=== PATIENT | female | born 1990 | race Caucasian/White ===

== ENCOUNTER 2017-08-25 14:03 | Inpatient (IN) | payer OTHER ==
[2017-08-25 14:42] LABS: Urine Bilirubin Negative (Negative); Urine Glucose Negative (Negative); Urine Nitrite Negative (Negative)
[2017-08-25 15:07] LABS: Hematocrit 38 % (35-47); Hemoglobin 12.9 g/dl (12.0-16.0); Mean Corpuscular HGB Conc 34 g/dl (31-36); Mean Corpuscular Hemoglobin 30 pg (27-31); Mean Corpuscular Volume 89 fL (80-97); Mean Platelet Volume 7 um3 (7.4-10.4); Red Blood Count 4.33 10^6/ul (4.0-5.4); Red Cell Distribution Width 13 % (10.5-15); White Blood Count 8.4 10^3/ul (3.5-10.8)
[2017-08-25 15:13] LABS: Benzodiazepine Urine Screen Presumptive Positive (None Detect)
[2017-08-25 15:24] LABS: ALT 7 U/L (7-52); AST 12 U/L (13-39); Albumin 4.2 g/dL (3.2-5.2); Alkaline Phosphatase 60 U/L (34-104); Anion Gap 5 mmol/L (2-11); BUN/Creatinine Ratio 13.3 (8-20); Blood Urea Nitrogen 11 mg/dL (6-24); CO2 Carbon Dioxide 27 mmol/L (22-32); Calcium 9.6 mg/dL (8.6-10.3); Chloride 106 mmol/L (101-111); EGFR African American 108.6 (>60); EGFR Non-African American 84.5 (>60); Globulin 2.8 g/dL (2-4); Glucose 89 mg/dL (70-100); Potassium 3.9 mmol/L (3.5-5.0); Sodium 138 mmol/L (133-145)
[2017-08-25 15:52] LABS: Acetaminophen < 15 mcg/mL; Alcohol < 10 mg/dL (<10)
[2017-08-25 16:12] LABS: TSH (Thyroid Stimulating Horm) 1.15 mcIU/mL (0.34-5.60)
[2017-08-25] MEDS ORDERED: Acetaminophen TAB* 325 MG PO PRN (23:33)
[2017-08-25] MEDS ORDERED: Al Hydrox/Mg Hydrox/Simet LIQ* 30 ML UDC PO PRN (23:33)
[2017-08-25] MEDS ORDERED: hydrOXYzine HCL TAB* 50 MG PO PRN (23:34)
[2017-08-26 07:44] VITALS: BP 97/66
[2017-08-26] MEDS ORDERED: Vitamin THERAPEUTIC TAB PO SCH (09:00)
[2017-08-26] MEDS ORDERED: Gabapentin CAP(*) 100 MG PO PRN (13:03)
[2017-08-26] MEDS ORDERED: Venlafaxine EXT RELEASE CAP* 37.5 MG PO SCH (14:00)
--- NOTE | 2017-08-26 18:32 | HP ---
HISTORY AND PHYSICAL: DATE OF ADMISSION: 08/25/17 SUPERVISING PSYCHIATRIST: Suraj Guillen MD* (dictated by VINEET Brown) . JUSTIFICATION FOR ADMISSION: The patient reports an increase in depression and anxiety. She has not had her antidepressive medications for 2 to 3 weeks due to kidney complications. She reports severe depressive symptoms along with thoughts of . She merits hospitalization for immediate safety and stabilization. CHIEF COMPLAINT: "I had to stop my medications 2 to 3 weeks ago." HISTORY OF PRESENT ILLNESS: The patient is a 26-year-old female who has been visiting family in the area. 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 She reports renal acidosis 2 to 3 weeks ago and therefore, stopped all medications until having further clarification, since then she has had significantly severe depressed mood, decrease in appetite and hypersomnia. She reports increase in anxiety and was given a prescription of alprazolam. She admits she has been over using this and does not wish to continue taking it. She endorses decreased concentration and focus. She states that she has difficulty sleeping and attributes this to working various shift work, 12-hour shifts. The patient reports a history of anorexia and disordered eating. She states that she has a sense of comfort when restricting her diet and has been eating approximately 500 to 800 calories recently. She states she tends to fixate on one food at a time and only eats that particular food. The patient states that she has a history of self-harm, specifically cutting onset in high school. Her last episode of self-harm was last year in which she needed sutures. She denies recent SIB. Sol states that she had many stressors in the past 4 to 5 months. Her mother was diagnosed with lung cancer in January of this year. Sol expected to care for her mother for extended period of time, so she quit her job as a nurse and moved home to the [facility]. Her mother suddenly on 04/09/17 and the patient moved back to [place] towards the end of March. She, her sister and her father went on a road trip in honor of her mother, then she returned back to [place] and to work in April. Her was deployed to [facility] in May. The patient denies periods of caren or psychosis. She denies other obsessions, compulsions , or rituals. She denies history of delusion or decreased motivation. She denies HI or . PAST PSYCHIATRIC HISTORY: The patient participated in therapy with local psychiatric nurse practitioner, Angelina Cruz when the patient was in high school. She attended therapy while living in [place], [place] last June after a self-harm episode. She reports she utilizes [employer] in regards to her career as ICU trauma nurse. She has recently been trying to pursue outpatient treatment and been frustrated by the length of time that it takes to get an appointment. Past psychiatric meds include sertraline and bupropion XL. She states that sertraline at higher doses appear to cause tremors. She reports efficacy from bupropion. History of using trazodone as needed for sleep , but did not like the hangover effect. She has recently been using alprazolam several times a day and wishes to discontinue this. She reports efficacy in the past with hydroxyzine as needed for anxiety. TRAUMA/ABUSE HISTORY: Her mother, Tasha, suddenly passed from lung cancer, 11/14. PAST MEDICAL HISTORY: Connective tissue disorder. She reports that she has had 2 shoulder repairs and hip repair including muscle grafting. She has had a stent placed in her subclavian vein due to scar tissue from the shoulder surgery that will be her right shoulder. Height 5 feet 8 inches, weight 133 pounds, she reports this is up somewhat, but has lost 10 pounds in the recent 2 months. Last menstrual period 4 years ago, Implanon was placed in 2012, removed and replaced April 2016. PRIMARY CARE PROVIDER: She has an upcoming new patient appointment in [place] on 09/03/17. CURRENT MEDICATIONS: None. ALLERGIES: AZITHROMYCIN. FAMILY PSYCHIATRIC HISTORY: Depression and marijuana use. SOCIAL HISTORY: The patient is the eldest of 2 daughters by her parents. Her sister is 15 months younger and is a residential finish carpenter at a college. The patient's father works for [employer]. Her mother as stated above is . The patient was raised in [place] and graduated from high school. As stated above, she is RN at [employer]. She on 11/28/15. Her was stationed in [place] last year and he has been deployed since May. REVIEW OF SYSTEMS: Constitutional: Negative. Negative for neurological symptoms, visual changes, headaches, respiratory difficulties, chest pain, syncope, gastrointestinal distress, musculoskeletal problems or skin problems. PHYSICAL EXAMINATION GENERAL: The patient is a well-developed thin framed female, sitting comfortably on her bed. She denies pain or distress. Head and face; no signs of trauma. Normal head and face inspection. VITAL SIGNS: Most recent vital signs; temp 98.9, pulse 80, respiration rate 16 , O2 saturation 98%, BP 97/66. HEENT: Eyes: PERRL. EOMI. Conjunctivae clear. No nystagmus. Ears: Hearing grossly intact. Ear canals, tympanic membranes within normal limits. Mouth: Mucous membranes are moist. Tongue midline. NECK: Supple. Trachea midline. Full ROM. LUNGS: Clear to auscultation. Breath sounds present. CARDIOVASCULAR: Heart regular rate and rhythm. Pulses symmetrical, present bilaterally in upper and lower extremities. ABDOMEN: Soft and nontender. Bowel sounds x4. NEURO: Alert and oriented x3. Gait is normal. MENTAL STATUS EXAM: The patient is a healthy-appearing white female dressed in her own clothing. She is well groomed, thin framed, long dark brown hair. She appears stated age. She sits comfortably on her bed and is cooperative with interview. She answers questions fully. She is alert and oriented x3. Her concentration is fair. Her memory is 3/3. Her mood is "okay." Affect is full range. Speech is regular rate and rhythm, soft and articulate. Thought process circumstantial in regards to current stressors. She is forward thinking and wants outpatient referrals. Content of thought is negative for SI , HI, . Her insight is good. Her judgement is good. Her fund of knowledge is excellent. LABORATORY DATA: CBC grossly unremarkable. Platelet count is 456,000, MPV is 7 , monocyte percentage 9.4. Chemistry is within normal limits. TSH 1.15. HCG is negative. Kidney functions are within normal limits. Urinalysis negative. Toxicology; benzodiazepines positive as expected. Salicylates, acetaminophen, and alcohol are negative. DIAGNOSES: [place] I: Major depressive disorder, moderate, recurrent; bereavement ; anorexia by history. [place] II: Deferred. [place] III: Connective tissue disorder. [place] IV: Stressors related to recent of mother, marital strain and emotional strain from career. [place] V: 60. ASSESSMENT: The patient is a 26-year-old white female originally from the [facility]. 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 She returned back home to help care for her mother this year when diagnosed with lung cancer. Her mother suddenly within 10 weeks of diagnosis. The patient is to a serviceman who was deployed to [facility] in May. She recently had episode of renal metabolic acidosis and therefore, stopped taking antidepressants. Since then, she has attempted to resume outpatient mental health services and been frustrated with access to care. She has also had fatigue, anhedonia, and has not returned phone calls to people that she has reached out to. She has strong support with her father who she is staying with for the weekend who agrees that a week's supply of medications until she is able to get an appointment in [facility] is a sufficient plan. Both Sol and her father appreciate admission and assistance with referrals. They prefer that she be discharged today to the care of her father to pursue further outpatient services. PLAN: Admit to adult behavioral services unit on voluntary status. Code status is full. She is currently on q.15-minute safety checks and encouraged to participate in intensive milieu and psychoeducational groups. Medication options discussed. The patient is agreeable to a trial of venlafaxine XR 37. 5 mg daily. Due to recent renal complications, we will avoid hydroxyzine because of the anticholinergic effects. We will try a low dose gabapentin 100 mg t.i.d. p.r.n. and discontinue alprazolam. The patient and father agree to pursue discharge the same day as stated above. The patient will be seen with her father until she returns to [place] this weekend at which time he will be staying with her until next Wednesday. Discharge planning including outpatient referrals in the [facility]. VINEET BROWN [id number]/[facility] #: [id number] SOHAIL
--- NOTE | 2017-08-27 13:05 | ED ---
Phani Velasco Benjamin, scribed for Ari Canales MD on 08/25/17 at 1440 . Psychiatric Complaint - HPI Summary HPI Summary: 26yo female c/o increasing depression. Pt has been treated for anxiety and depression for 8 years, but her depression has been worsening with increasing stress in her life lately. Pts mother recently , has been [place], and pt is also dealing with an unknown kidney issue that altogether is stressing her out. She reports recent social withdrawal and decreased activities. Pt states that she has has been taking zolaf for her kidney issues but is now completely off zolaf. Pt only takes Xanax as needed. Pt denies SI. - History Of Current Complaint Chief Complaint: EDMentalHealth Time Seen by Provider: 08/25/17 14:21 Hx Obtained From: Patient Onset/Duration: Gradual Onset, Lasting Weeks - "weeks", Still Present Timing: Constant Severity Initially: Mild Severity Currently: Moderate Character: Depressed Aggravating Factor(s): Recent Stress Alleviating Factor(s): Nothing Associated Signs And Symptoms: Positive: Social Withdrawal Related History: Positive For: Prior Psychiatric Issues - hx of depression and anxiety - Allergies/Home Medications Allergies/Adverse Reactions: Allergies Allergy/AdvReac Type Severity Reaction Status Date / Time Azithromycin Allergy Mild Hives Verified 08/26/17 11:49 PMH/Surg Hx/FS Hx/Imm Hx Infectious Disease History: No Infectious Disease History: Denies: Traveled Outside the [place] in Last 30 Days - Family History Known Family History: Negative: Cardiac Disease - Social History Occupation: Employed Full-time Lives: With Family Review of Systems Constitutional: Negative Eyes: Negative ENT: Negative Cardiovascular: Negative Respiratory: Negative Gastrointestinal: Negative Genitourinary: Negative Musculoskeletal: Negative Skin: Negative Neurological: Negative Positive: Depressed, Other - denies SI All Other Systems Reviewed And Are Negative: Yes Physical Exam Triage Information Reviewed: Yes Vital Signs On Initial Exam: Initial Vitals Temp Pulse Resp BP Pulse Ox 98.2 F 74 16 128/81 99 08/25/17 14:06 08/25/17 14:06 08/25/17 14:06 08/25/17 14:06 08/25/17 14:06 Vital Signs Reviewed: Yes Appearance: Positive: Well-Appearing, No Pain Distress, Well-Nourished Skin: Positive: Warm, Skin Color Reflects Adequate Perfusion, Dry Head/Face: Positive: Normal Head/Face Inspection Eyes: Positive: EOMI, [place] ENT: Positive: Normal ENT inspection, Hearing grossly normal Neck: Positive: Supple, Nontender Respiratory/Lung Sounds: Positive: Clear to Auscultation, Breath Sounds Present Cardiovascular: Positive: RRR, Pulses are Symmetrical in both Upper and Lower Extremities Abdomen Description: Positive: Nontender, Soft Bowel Sounds: Positive: Present Musculoskeletal: Positive: Strength/ROM Intact Neurological: Positive: Sensory/Motor Intact, Alert, Oriented to Person Place, Time Psychiatric: Positive: Affect/Mood Appropriate Diagnostics - Vital Signs Vital Signs Temp Pulse Resp BP Pulse Ox 08/25/17 14:06 98.2 F 74 16 128/81 99 - Laboratory Lab Results: Lab Results 08/25/17 08/25/17 08/25/17 Range/Units 14:25 14:25 14:53 WBC (3.5-10.8) 10^3/ul RBC (4.0-5.4) 10^6/ul Hgb (12.0-16.0) g/dl Hct (35-47) % MCV (80-97) fL MCH (27-31) pg MCHC (31-36) g/dl RDW (10.5-15) % Plt Count (150-450) 10^3/ul MPV (7.4-10.4) um3 Neut % (Auto) (38-83) % Lymph % (Auto) (25-47) % [place] % (Auto) (1-9) % Eos % (Auto) (0-6) % Baso % (Auto) (0-2) % Absolute Neuts (auto) (1.5-7.7) 10^3/ul Absolute Lymphs (auto) (1.0-4.8) 10^3/ul Absolute Monos (auto) (0-0.8) 10^3/ul Absolute Eos (auto) (0-0.6) 10^3/ul Absolute Basos (auto) (0-0.2) 10^3/ul Absolute Nucleated RBC 10^3/ul Nucleated RBC % Sodium 138 (133-145) mmol/L Potassium 3.9 (3.5-5.0) mmol/L Chloride 106 (101-111) mmol/L Carbon Dioxide 27 (22-32) mmol/L Anion Gap 5 (2-11) mmol/L BUN 11 (6-24) mg/dL Creatinine 0.83 (0.51-0.95) mg/dL Est GFR ( Amer) 108.6 (>60) Est GFR (Non-Af Amer) 84.5 (>60) BUN/Creatinine Ratio 13.3 (8-20) Glucose 89 (70-100) mg/dL Calcium 9.6 (8.6-10.3) mg/dL Total Bilirubin 0.30 (0.2-1.0) mg/dL AST 12 L (13-39) U/L ALT 7 (7-52) U/L Alkaline Phosphatase 60 (34-104) U/L Total Protein 7.0 (6.4-8.9) g/dL Albumin 4.2 (3.2-5.2) g/dL Globulin 2.8 (2-4) g/dL Albumin/Globulin Ratio 1.5 (1-3) TSH 1.15 (0.34-5.60) mcIU/mL Beta HCG, Quant < 0.60 mIU/mL Urine Color Yellow Urine Appearance Cloudy Urine pH 6.0 (5-9) Ur Specific [place] 1.011 (1.010-1.030) Urine Protein Negative (Negative) Urine Ketones Negative (Negative) Urine Blood Negative (Negative) Urine Nitrate Negative (Negative) Urine Bilirubin Negative (Negative) Urine Urobilinogen Negative (Negative) Ur Leukocyte Esterase Negative (Negative) Urine Glucose Negative (Negative) Urine Ascorbic Acid * H (Negative) Salicylates 4.60 (<30) mg/dL Urine Opiates Screen None detected (None Detect) Acetaminophen < 15 mcg/mL Ur Barbiturates Screen None detected (None Detect) Ur Phencyclidine Scrn None detected (None Detect) Ur Amphetamines Screen None detected (None Detect) U Benzodiazepines Scrn Presumptive positive H (None Detect) Urine Cocaine Screen None detected (None Detect) U Cannabinoids Screen None detected (None Detect) Serum Alcohol < 10 (<10) mg/dL 08/25/17 Range/Units 14:53 WBC 8.4 (3.5-10.8) 10^3/ul RBC 4.33 (4.0-5.4) 10^6/ul Hgb 12.9 (12.0-16.0) g/dl Hct 38 (35-47) % MCV 89 (80-97) fL MCH 30 (27-31) pg MCHC 34 (31-36) g/dl RDW 13 (10.5-15) % Plt Count 456 H (150-450) 10^3/ul MPV 7 L (7.4-10.4) um3 Neut % (Auto) 53.6 (38-83) % Lymph % (Auto) 34.7 (25-47) % [place] % (Auto) 9.4 H (1-9) % Eos % (Auto) 1.9 (0-6) % Baso % (Auto) 0.4 (0-2) % Absolute Neuts (auto) 4.5 (1.5-7.7) 10^3/ul Absolute Lymphs (auto) 2.9 (1.0-4.8) 10^3/ul Absolute Monos (auto) 0.8 (0-0.8) 10^3/ul Absolute Eos (auto) 0.2 (0-0.6) 10^3/ul Absolute Basos (auto) 0 (0-0.2) 10^3/ul Absolute Nucleated RBC 0.01 10^3/ul Nucleated RBC % 0.1 Sodium (133-145) mmol/L Potassium (3.5-5.0) mmol/L Chloride (101-111) mmol/L Carbon Dioxide (22-32) mmol/L Anion Gap (2-11) mmol/L BUN (6-24) mg/dL Creatinine (0.51-0.95) mg/dL Est GFR ( Amer) (>60) Est GFR (Non-Af Amer) (>60) BUN/Creatinine Ratio (8-20) Glucose (70-100) mg/dL Calcium (8.6-10.3) mg/dL Total Bilirubin (0.2-1.0) mg/dL AST (13-39) U/L ALT (7-52) U/L Alkaline Phosphatase (34-104) U/L Total Protein (6.4-8.9) g/dL Albumin (3.2-5.2) g/dL Globulin (2-4) g/dL Albumin/Globulin Ratio (1-3) TSH (0.34-5.60) mcIU/mL Beta HCG, Quant mIU/mL Urine Color Urine Appearance Urine pH (5-9) Ur Specific [place] (1.010-1.030) Urine Protein (Negative) Urine Ketones (Negative) Urine Blood (Negative) Urine Nitrate (Negative) Urine Bilirubin (Negative) Urine Urobilinogen (Negative) Ur Leukocyte Esterase (Negative) Urine Glucose (Negative) Urine Ascorbic Acid (Negative) Salicylates (<30) mg/dL Urine Opiates Screen (None Detect) Acetaminophen mcg/mL Ur Barbiturates Screen (None Detect) Ur Phencyclidine Scrn (None Detect) Ur Amphetamines Screen (None Detect) U Benzodiazepines Scrn (None Detect) Urine Cocaine Screen (None Detect) U Cannabinoids Screen (None Detect) Serum Alcohol (<10) mg/dL Result Diagrams: 08/25/17 14:53 08/25/17 14:53 Lab Statement: Any lab studies that have been ordered have been reviewed, and results considered in the medical decision making process. Course/Dx - Course Course Of Treatment: Reviewed pts list of medications and allergies. Blood pressure noted. Assessment/Plan: Sol was medically cleared and underwent a MHE. She will be admitted to the MHU in stable condition with a diagnosis of depression and SI - Differential Dx/Clinical Impression Provider Diagnosis: Depression, Suicidal ideation Discharge - Discharge Plan Condition: Improved Disposition: HOME The documentation as recorded by the Phani bauman Benjamin accurately reflects the service I personally performed and the decisions made by me, Ari Canales MD.
--- NOTE | 2017-08-27 23:17 | DS ---
DISCHARGE SUMMARY: DATE OF ADMISSION: 08/25/17 DATE OF DISCHARGE: 08/26/17 SUPERVISING PSYCHIATRIST: Dr. Suraj Guillen * (DICTATED BY LEDA PALMER NP) DISCHARGE DIAGNOSES: [place] I: Major depressive disorder, moderate, recurrent; bereavement; anorexia by history. [place] II: Deferred. [place] III: Connective tissue disorder. [place] IV: Stressors related to recent of mother, marital strain, and emotional strain from career. [place] V: 60. CONDITION AT TIME OF DISCHARGE: The patient is improved. She reports relief due to assistance in setting up referral for outpatient care. She states she is looking forward to following up with outpatient mental health facility for both medication management and therapy. The patient reports she has knowledge of eating disorder facility in [place] called [facility] and is also going to pursue an intake there. The patient and her father report understanding of likely complication of symptoms due to recent stopping of antidepressants. She asserts that she does not want to continue with benzodiazepines. We will slowly titrate venlafaxine and utilize gabapentin as needed for anxiety. The patient denies suicidal ideation. She denies passive wish. She and her father have identified safety plan for the next week. MENTAL STATUS EXAM: The patient is a healthy-appearing white female, dressed in her own clothing. She is well groomed, thin framed, with long dark brown hair. She appears stated age. She sits comfortably on her bed and is cooperative with interview. She answers questions fully. She is alert and oriented x3. Concentration is fair. Her memory is 3/3. Her mood is "better" relieved. Affect is full range. Speech has regular rate and rhythm, soft and articulate. Thought Process: Logical and goal directed. Content of thought is negative for SI, SIB urges, HI, or . Her insight is good. Her judgment is good. Her fund of knowledge is excellent. DISCHARGE INSTRUCTIONS: Instructions are given to the patient by nursing staff. A. Medications: Following medications are electronically prescribed to [facility] : 1. Venlafaxine XR 37.5 mg x3 days, then increase to 75 mg daily. 2. Gabapentin 100 mg p.o. t.i.d. p.r.n. anxiety. The patient and father are instructed on how to safely dispose of previous prescriptions. B. Diet: High-protein diet, increase fluid intake. C. Activity: Ambulation as tolerated. Tobacco cessation not applicable. No pending labs or diagnostic studies at time of discharge. FOLLOWUP CARE: The patient was referred to [facility] in [place], [place]. She has a followup appointment with Dr. Mauricio Black and will be referred to work with Violeta Yarbrough LCSW, R[facility]ALL. tail worker, Makeda, will follow up to confirm appointment times. The patient has an upcoming new patient appointment on 09/03/17 with her primary care provider in [place]. She could not recall the name. As stated above, she plans to pursue services for eating disorder at [facility] in [place]. HOSPITAL COURSE: A. Reason for admission: The patient presented to the emergency department voluntarily. She reported increase in depression and anxiety, attributed not having antidepressive medications for 2 to 3 weeks. B. Psychiatric treatment rendered: The patient was admitted to adult behavioral services unit on voluntary status. Code status was full. She was placed on q.15- minute safety checks and encouraged to participate in intensive milieu and psychoeducational groups. Medication options were discussed paying close attention to recent metabolic acidosis and potential kidney functions. The patient was agreeable to trial of venlafaxine and gabapentin. She reported plan to discontinue benzodiazepine use and she and her father were instructed on safely disposing of old prescriptions. The patient met with social media director, this production underwriter separately and reported relief from assistance with setting up outpatient referrals. Her father visited over visiting hours and agreed with the patient's request to be discharged to pursue outpatient services. He and the patient identified a safety plan for the next week so that she could transition back to [place] and her work as ICU burn/trauma nurse at [employer]. The patient was safe on all checks. She denied suicidal ideation. She politely requested to pursue discharge and to be able to return home to her father. Father agreed that this is a safe option and that he will be present to monitor her. The patient and father expressed concern for increased decompensation if admission continued. They reported decrease in stressors due to assistance with outpatient referrals. Due to obligation to treat in least restrictive setting, discharge was decided upon by treatment team. The patient was discharged by nursing staff and belongings returned to her. She and her father were given written instructions and escorted to exit. LEDA PALMER, SEAM RUBBING MACHINE OPERATOR [id number]/[facility] #: [id number] SOHAIL
== END 2017-08-26 17:45 | disposition home or self-care (01) | DRG 885 ==
LOC: ED 14:03 → BSU 21:13
PROVIDERS: ADMIT Psychiatry & Neurology Psychiatry; ATTEND Psychiatry & Neurology Psychiatry
DX: F33.1 Major depressive disorder, recurrent, moderate (principal); F41.9 Anxiety disorder, unspecified; R63.0 Anorexia; R45.851 Suicidal ideations; Z88.1 Allergy status to other antibiotic agents; Z80.1 Family history of malignant neoplasm of trachea, bronchus and lung; Z81.8 Family history of other mental and behavioral disorders; Z63.4 Disappearance and death of family member; Z68.20 Body mass index [BMI] 20.0-20.9, adult
CPT/HCPCS: 36415; 80053; 80307; 80320; 80329; 81003; 84443; 84702; 85025; 99238; A9270-GY; G0480

== ENCOUNTER 2020-09-13 12:14 | Observation (INO) ==
[2020-09-13 13:29] LABS: ABS Eosinophils 0.2 10^3/ul (0-0.6); ABS Lymphocytes 1.9 10^3/ul (1.0-4.8); ABS Monocytes 0.6 10^3/ul (0-0.8); ABS Neutrophils 4.6 10^3/ul (1.5-7.7); Eosinophil % 2.9 %; Hematocrit 36 % (35-47); Lymphocyte % 25.9 %; Mean Corpuscular HGB Conc 34 g/dL (31-36); Mean Corpuscular Hemoglobin 30 pg (27-31); Mean Corpuscular Volume 89 fL (80-97); Mean Platelet Volume 7.6 fL (7.4-10.4); Platelet Count 413 10^3/uL (150-450); Red Blood Count 4.01 10^6 /uL (3.70-4.87); Red Cell Distribution Width 14 % (10-15); White Blood Count 7.4 10^3/uL (3.5-10.8)
[2020-09-13 13:49] LABS: Albumin 4.1 g/dL (3.2-5.2); Albumin/Globulin Ratio 1.5 (1-3); BUN/Creatinine Ratio 9.1 (8-20); C Reactive Protein 4.58 mg/L (<8.01); Calcium 8.9 mg/dL (8.6-10.3); EGFR African American 108.8 (>60); EGFR Non-African American 89.9 (>60); Globulin 2.7 g/dL (2-4); Total Bilirubin 0.2 mg/dL (0.2-1.0); Total Protein 6.8 g/dL (6.4-8.9)
[2020-09-13 14:45] LABS: Potassium 4.4 mmol/L (3.5-5.0)
[2020-09-13 14:56] LABS: Erythrocyte Sed Rate 5 mm/Hr (0-19)
[2020-09-13 15:59] LABS: Magnesium 1.9 mg/dL (1.9-2.7)
[2020-09-13] MEDS ORDERED: NS 0.9% 1000 ml BAG 1,000 ML IV ONE (16:17)
[2020-09-13 17:49] LABS: TSH Ultra Thyroid Stim Horm 0.87 mcIU/mL (0.34-5.60)
[2020-09-13] MEDS: NS 0.9% 1000 ml BAG 1,000 ML IV SCH (19:37)
[2020-09-14] MEDS: NS 0.9% 1000 ml BAG 1,000 ML IV SCH (05:54)
[2020-09-14 15:54] VITALS: BP 113/58
== END 2020-09-14 19:05 | disposition home or self-care (01) ==
LOC: MEDTELE 12:14 → ED 12:14 → MEDTELE 19:00
PROVIDERS: ADMIT Hospitalist; ATTEND Hospitalist

== ENCOUNTER 2022-01-05 08:12 | Inpatient (IN) ==
[2022-01-05] MEDS ORDERED: Lactated Ringers 1000 ml BAG 1,000 ML IV ONE ×2 (09:21→17:35)
[2022-01-05] MEDS ORDERED: Buffered Lidocaine 1% SYRIN 1 ml INTRADERM ONE (09:21)
[2022-01-05] MEDS ORDERED: Oxytocin in LR 20 UNITS/1,000 ML BAG IVPB SCH ×2 (10:00→20:00)
[2022-01-05] MEDS ORDERED: Lactated Ringers 1000 ml BAG 1,000 ML IV SCH ×3 (10:00→20:00)
[2022-01-05 10:15] LABS: ABS Eosinophils 0.1 10^3/ul (0-0.6); ABS Monocytes 1.1 10^3/ul (0-0.8); ABS Neutrophils 9.4 10^3/ul (1.5-7.7); Eosinophil % 0.8 %; Hematocrit 36 % (35-47); Hemoglobin 11.7 g/dL (12.0-16.0); Lymphocyte % 15.8 %; Mean Corpuscular HGB Conc 33 g/dL (31-36); Mean Corpuscular Hemoglobin 30 pg (27-31); Mean Corpuscular Volume 90 fL (80-97); Mean Platelet Volume 8.7 fL (7.4-10.4); Platelet Count 404 10^3/uL (150-450); Red Blood Count 3.94 10^6 /uL (3.70-4.87); Red Cell Distribution Width 17 % (10-15); White Blood Count 12.6 10^3/uL (3.5-10.8)
[2022-01-05 10:36] LABS: Rapid COVID-19 Molecular Undetected (Undetected)
[2022-01-05 10:40] LABS: Urine Benzodiazepine Screen None Detected (None Detect); Urine Cannabinoids Screen None Detected (None Detect); Urine Opiates Screen None Detected (None Detect)
[2022-01-05] MEDS ORDERED: OBEPIDURAL 250 ML EPIDURAL ONE (16:35)
[2022-01-05] MEDS ORDERED: Phenylephrine 40 mcg/mL 10mL (400mcg) SYRINGE IV PUSH PRN ×2 (17:35)
[2022-01-05] MEDS ORDERED: EPHEDrine (Pressors) 50 MG/ML VIAL IV PUSH PRN ×2 (17:35)
[2022-01-05] MEDS ORDERED: Sodium Citrate/Citric Acid LIQ 15 ML UDC PO PRN (17:35)
[2022-01-05] MEDS ORDERED: OBEPIDURAL 250 ML EPIDURAL SCH (18:00)
[2022-01-05] MEDS ORDERED: Dibucaine 1% OINT 28.35 GM TUBE PR PRN (19:51)
[2022-01-05] MEDS ORDERED: Glycerin ADULT 2.4 gm SUPP PR PRN (19:51)
[2022-01-05] MEDS ORDERED: Witch Hazel PAD JAR TOPICAL PRN (19:51)
[2022-01-05] MEDS ORDERED: Lidocaine 1% VIAL 10 MG/ML VIAL ONE (23:22)
[2022-01-06 08:20] LABS: Hematocrit 30 % (35-47); Hemoglobin 10.1 g/dL (12.0-16.0); Mean Corpuscular HGB Conc 33 g/dL (31-36); Mean Corpuscular Hemoglobin 30 pg (27-31); Mean Corpuscular Volume 91 fL (80-97); Mean Platelet Volume 8.6 fL (7.4-10.4); Platelet Count 373 10^3/uL (150-450); Red Blood Count 3.35 10^6 /uL (3.70-4.87); Red Cell Distribution Width 18 % (10-15); White Blood Count 18.7 10^3/uL (3.5-10.8)
[2022-01-06 08:44] LABS: ABS Eosinophils 0.1 10^3/ul (0-0.6); ABS Lymphocytes 2.2 10^3/ul (1.0-4.8); ABS Monocytes 1.8 10^3/ul (0-0.8); ABS Neutrophils 14.5 10^3/ul (1.5-7.7); Eosinophil % 0.7 %; Nucleated Red Blood Cells % 0.1
[2022-01-07 07:50] VITALS: BP 121/74
== END 2022-01-07 15:40 | disposition home or self-care (01) | DRG 560 ==
LOC: MCHOBOUT 08:12 → MCHOB 09:20
PROVIDERS: ADMIT Obstetrics & Gynecology; ATTEND Obstetrics & Gynecology

== ENCOUNTER 2023-12-03 00:57 | Inpatient (IN) ==
[2023-12-03] MEDS ORDERED: Lactated Ringers 1000 ml BAG 1,000 ML IV ONE (01:10)
[2023-12-03] MEDS ORDERED: Lidocaine 1% VIAL 10 MG/ML 30 ML VIAL INJ PRN (01:10)
[2023-12-03] MEDS ORDERED: Buffered Lidocaine 1% SYRIN 1 ml INTRADERM ONE (01:10)
[2023-12-03] MEDS ORDERED: Lidocaine 1.5% EPI 1:200,000 30 ML SDV ONE (01:28)
[2023-12-03] MEDS ORDERED: OBEPIDURAL (200 ML) 0 ML EPIDURAL ONE (01:28)
[2023-12-03 01:38] LABS: Hematocrit 37.8 % (35-45); Mean Corpuscular Hemoglobin 30.5 pg (27-33); Mean Corpuscular Hgb Conc 34.5 g/dL (31-36); Mean Corpuscular Volume 88.4 fL (80-97); Mean Platelet Volume 9.2 fL (7.5-11.2); Platelet Count 306 10^3/uL (150-450); Red Blood Count 4.28 10^6/uL (3.63-4.92); Red Cell Distribution Width 14.1 % (12-17); White Blood Count 19.3 10^3/uL (3.8-11.8)
[2023-12-03] MEDS ORDERED: Ondansetron 4 mg VIAL 2 MG/ML 2 ml VIAL IV PRN (01:41)
[2023-12-03] MEDS ORDERED: Oxytocin in LR 20,000 MILLI.UNIT/1,000 ML BAG IV ONE (01:53)
[2023-12-03] MEDS ORDERED: Lactated Ringers 1000 ml BAG 1,000 ML IV SCH ×2 (02:00→03:00)
[2023-12-03 02:26] LABS: Albumin 3.6 g/dL (3.2-5.2); Albumin/Globulin Ratio 1.2 (1-3); Calcium 9.2 mg/dL (8.6-10.3); Creatinine, Serum 0.71 mg/dL (0.51-0.95); Potassium 3.9 mmol/L (3.5-5.0); Total Bilirubin 0.3 mg/dL (0.2-1.0); Total Protein 6.6 g/dL (6.4-8.9); eGFR CKD-EPI 116.5 (>60)
[2023-12-03 02:28] LABS: ABS Basophils 0.1 10^3/uL (0.0-0.1); ABS Eosinophils 0.1 10^3/uL (0.0-0.5); ABS Lymphocytes 2.9 10^3/uL (1.0-4.8); ABS Monocytes 1.6 10^3/uL (0.0-0.9); ABS Neutrophils 14.6 10^3/uL (1.5-7.6); Eosinophil % 0.7 %; Lymphocyte % 14.8 %; RBC Morphology Normal (Normal)
[2023-12-03] MEDS ORDERED: Dibucaine 1% OINT 28.35 GM TUBE PR PRN (02:37)
[2023-12-03] MEDS ORDERED: Witch Hazel PAD JAR TOPICAL PRN (02:37)
[2023-12-03 03:44] LABS: Urine Benzodiazepine Screen None Detected (None Detect); Urine Opiates Screen None Detected (None Detect)
[2023-12-04 07:43] LABS: ABS Basophils 0.1 10^3/uL (0.0-0.1); ABS Eosinophils 0.6 10^3/uL (0.0-0.5); ABS Monocytes 1.1 10^3/uL (0.0-0.9); ABS Neutrophils 9.1 10^3/uL (1.5-7.6); Eosinophil % 4.6 %; Hematocrit 36.5 % (35-45); Hemoglobin 12.1 g/dL (11.5-14.3); Lymphocyte % 21.5 %; Mean Corpuscular Hemoglobin 29.9 pg (27-33); Mean Corpuscular Hgb Conc 33.2 g/dL (31-36); Mean Corpuscular Volume 89.9 fL (80-97); Mean Platelet Volume 8.7 fL (7.5-11.2); Platelet Count 305 10^3/uL (150-450); Red Blood Count 4.06 10^6/uL (3.63-4.92); Red Cell Distribution Width 14.5 % (12-17); White Blood Count 13.9 10^3/uL (3.8-11.8)
[2023-12-04 08:11] VITALS: BP 118/69
== END 2023-12-04 11:15 | disposition home or self-care (01) | DRG 560 ==
LOC: MCHOBOUT 00:57 → MCHOB 01:10
PROVIDERS: ADMIT Registered Nurse; ATTEND Registered Nurse